=== PATIENT | female | born 1980 | race African-American/Black ===

== ENCOUNTER 2023-08-28 16:02 | Emergency (ER) | payer OTHER ==
[~2023-08-28] VITALS: Ht 170.2 cm; Wt 56.2 kg
[2023-08-28] MEDS ORDERED: ALPR0.5T8 PO (16:17)
[2023-08-28] MEDS ORDERED: SERT100T PO (16:17)
[2023-08-28] MEDS ORDERED: TRAZ-182 PO (16:17)
[2023-08-28 17:43] LABS: BASOPHILS # (AUTO) 0.2 K/UL (0.0-0.2); BASOPHILS % (AUTO) 3.5 % (0.0-2.0); DIFFERENTIAL COMMENT 0; EOSINOPHILS # (AUTO) 0.2 K/uL (0.0-0.7); EOSINOPHILS % (AUTO) 2.9 % (0.0-7.0); HEMATOCRIT 26.8 % (31.2-41.9); HEMOGLOBIN 8.9 g/dL (10.9-14.3); LYMPHOCYTES # (AUTO) 1.2 K/uL (0.8-4.8); LYMPHOCYTES % (AUTO) 19.3 % (20.5-51.5); MEAN CORPUSCULAR HEMOGLOBIN 23.7 uug (24.7-32.8); MEAN CORPUSCULAR HGB CONC 33 g/dL (32.3-35.6); MEAN CORPUSCULAR VOLUME 71.7 fL (75.5-95.3); MONOCYTES # (AUTO) 0.2 K/uL (0.1-1.30); MONOCYTES % (AUTO) 3.4 % (0.0-11.0); NEUTROPHILS # (AUTO) 4.4 K/uL (1.8-8.9); NEUTROPHILS % (AUTO) 70.9 % (38.5-71.5); PLATELET COUNT (AUTO) 298 K/uL (179-408); RED BLOOD CELL COUNT(AUTO) 3.75 MIL/uL (3.63-4.92); RED CELL DISTRIBUTION WIDTH 19.9 % (12.3-17.7); WHITE BLOOD COUNT (AUTO) 6.1 K/uL (3.8-11.8)
[2023-08-28 17:53] LABS: CALCIUM 8.9 mg/dL (8.5-10.1); CREATININE 0.7 mg/dL (0.6-1.3); POTASSIUM 4.2 mmol/L (3.5-5.1)
[2023-08-28 18:23] LABS: ALBUMIN 4.2 g/dL (3.4-5.0); BILIRUBIN,DIRECT 0.1 mg/dL (0.0-0.2); BILIRUBIN,TOTAL 0.4 mg/dL (0.2-1.0); TOTAL PROTEIN, SERUM 7.9 g/dL (6.4-8.2)
[2023-08-28] MEDS ORDERED: FERR325T23 PO (18:38)
[2023-08-28] MEDS ORDERED: CYANOCOBALAMIN 1000 MCG/ML VIAL ONE (19:01)
[2023-08-28 19:06] VITALS: BP 126/40; O2SAT 100
[2023-08-28] MEDS: CYANOCOBALAMIN 1000 MCG/ML VIAL IM ONE (19:07)
[2023-08-28 19:14] LABS: IRON, SERUM 46 ug/dL (50-175)
== END 2023-08-28 19:08 | disposition home or self-care (01) ==
LOC: ER 16:02
DX: R42 Dizziness and giddiness (principal); D50.9 Iron deficiency anemia, unspecified; E53.8 Deficiency of other specified B group vitamins; F17.200 Nicotine dependence, unspecified, uncomplicated; Z79.899 Other long term (current) drug therapy
CPT/HCPCS: 99283; 80076; 80048; 82607; 83550; 85025; 36415; 96372; J3420; A4606; A4663